=== PATIENT | female | born 1980 | race Caucasian/White ===

== ENCOUNTER 2023-11-21 10:26 | Emergency (ER) | payer OTHER ==
[2023-11-21 10:34] VITALS: BP 145/90; PULSE 98; RESP 18; TEMP 97.5; BMI 24.3
[2023-11-21 11:59] LABS: BASO % 0.4 % (0-2.0); EOS % 2.8 % (0-4.5); HEMATOCRIT 40.7 % (32.4-45.2); HEMOGLOBIN 13.6 GM/dL (10.7-15.3); LYMPH % 28.8 % (8-40); MCH 29.4 pg (25.7-33.7); MCHC 33.3 g/dl (32.0-36.0); MEAN CELL VOLUME 88.2 fl (80-96); MEAN PLT VOLUME 10.1 fl (7.5-11.1); MONO % 4.5 % (3.8-10.2); NEUT % 63.5 % (42.8-82.8); PLATELET COUNT 287 10^3/uL (134-434); RBC 4.62 M/mm3 (3.60-5.2); RDW 13.2 % (11.6-15.6); WHITE BLOOD COUNT 9.9 K/mm3 (4.0-10.0)
[2023-11-21 12:24] LABS: POTASSIUM 4.2 mmol/L (3.5-5.1)
[2023-11-21 12:26] LABS: ALBUMIN 3.8 g/dl (3.4-5.0); CALCIUM 9.7 mg/dL (8.5-10.1)
[2023-11-21 12:27] LABS: BLOOD UREA NITROGEN 14.1 mg/dL (7-18)
[2023-11-21 12:29] LABS: CREATININE 0.7 mg/dL (0.55-1.3)
[2023-11-21 12:31] LABS: BILIRUBIN,TOTAL 0.2 mg/dL (0.2-1); TOT PROT 8.4 g/dl (6.4-8.2)
== END 2023-11-21 14:31 | disposition home or self-care (01) ==
LOC: JER 10:26
DX: R05.1 Acute cough (principal); R50.9 Fever, unspecified; R11.0 Nausea; J06.9 Acute upper respiratory infection, unspecified; Z20.822 Contact with and (suspected) exposure to COVID-19
CPT/HCPCS: 0241U-QW; 36415; 71046-TC-FY; 80053; 83880; 84484; 85025; 86850; 86900; 86901; 99284-25